=== PATIENT | female | born 1965 | race Caucasian/White ===

== ENCOUNTER → 2017-05-14 | Outpatient (CLI) | payer MEDICARE, OTHER ==
[~2017-05-14] MED LIST: ACETAMINOPHEN650 M1 PO; ALPRAZOLAM PO; CLEOCIN150 M2 PO; CRESTOR PO; HCTZ PO; HUMALOG MIX 75/10 ML SUBQ; HYDROCHLOROTHIA25 MG PO; IBUPROFEN800 MG PO; INVOKANA300 MG PO; JANUMET XR 1001 EACH PO; JANUVIA100 MG PO; JARDIANCE25 MG PO; K-TAB ER20 MEQ PO; LANTUS SOL100 UNIT/1 SUBQ; LANTUS100 U/ML INJ; LANTUS100 U/ML SUBQ; LASIX PO; LEVEMIR SUBQ; LEVOFLOXACIN750 MG PO; LIPITOR PO; LISINOPRIL PO; LOPID600 MG PO; LORTAB 7.51 TAB 7.5/ PO; LOVASTATIN20 MG PO; NEURONTIN300 MG PO; NEXIUM20 MG PO; NORCO 10/3251 TAB PO; NORVASC10 MG PO; NOVOLOG100 U/ML SL; PANTOPRAZOLE SO20 MG PO; PERCOCET7.5 PO; PIOGLITAZONE30 MG PO; PROZAC PO; ROBAXIN 750750 MG PO; TRAMADOL HCL50 M1 PO; TYLENOL #3 PO; TYLENOL #4 PO; VALSARTAN160 MG PO; VANCOCIN HCL2 GM IV; VICTOZA SUBQ; ZANTAC PO; ZESTORETIC 20/21 TAB PO; [UNRECOGNIZED DRUG - OTHER] PO
--- NOTE | ~2017-05-14 | EKG ---
PATIENT: LROI GARCIA UNIT #: [id number] Ventricular Rate: 70 BPM Atrial Rate: 70 BPM P-R Interval: 196 ms QRS Duration: 82 ms Q-T Interval: 394 ms QTC Calculation(Bezet): 425 ms P [place]: 46 degrees Calculated R [place]: -10 degrees Calculated T [place]: 5 degrees Diagnosis Line: Normal sinus rhythm Diagnosis Line: Low voltage QRS Diagnosis Line: Borderline ECG Diagnosis Line: When compared with ECG of 25-APR-2015 11:27, Diagnosis Line: No significant change was found Diagnosis Line: Confirmed by WINSOME ZEPEDA MD ([id number]) on Diagnosis Line: 05/14/2017 12:41:10 PM INTERPRETING MD: DUANE YIN
[2017-05-14 13:04] LABS: BUN/CREATININE RATIO 34.44; CALCIUM SERUM 9.4 mg/dL (8.4-10.2); CREATININE SERUM 0.9 mg/dL (0.6-1.4); POTASSIUM 4.7 mmol/L (3.5-5.1)
== END | disposition home or self-care (01) ==
LOC: CAMB 10:39
PROVIDERS: Orthopaedic Surgery
DX: Z01.818 Encounter for other preprocedural examination (principal)
CPT/HCPCS: 36415; 80048; 93005